=== PATIENT | male | born 1990 | race Caucasian/White ===

== ENCOUNTER 2020-12-11 10:00 | Emergency (ER) | payer MEDICAID ==
[~2020-12-11] VITALS: Ht 175.3 cm; Wt 83.0 kg
[2020-12-11 10:09] VITALS: BP_SYST 126
[2020-12-11] MEDS ORDERED: MORPHINE 4 MG INJ. 4 MG/ML VIAL IVP ONE (10:15)
[2020-12-11] MEDS ORDERED: KETOROLAC TROMETHAMINE 60 MG/2 ML VIAL IM ONE (10:15)
[2020-12-11] MEDS ORDERED: LORazepam 1 MG TABLET PO ONE (10:30)
[2020-12-11] MEDS ORDERED: MORPHINE 4 MG INJ. 4 MG/ML VIAL IM ONE (10:30)
[2020-12-11] MEDS ORDERED: IBUP-1971 PO (10:45)
[2020-12-11 10:53] VITALS: BP_SYST 126
== END 2020-12-11 10:53 | disposition home or self-care (01) ==
LOC: SED 10:00
DX: M25.512 Pain in left shoulder (principal); W18.39XA Other fall on same level, initial encounter; Y93.63 Activity, rugby; Y92.89 Other specified places as the place of occurrence of the external cause; Y99.8 Other external cause status
CPT/HCPCS: 73030; 99283